=== PATIENT | male | born 1985 | race Hispanic/Latino ===

== ENCOUNTER 2018-01-11 17:01 | Observation (INO) | payer BC, MEDICAID, OTHER ==
[~2018-01-11] VITALS: Ht 177.8 cm; Wt 128.4 kg
[~2018-01-11 17:01] MED LIST: NEXIUM40 MG PO
[2018-01-11] MEDS ORDERED: SODIUM CHLORIDE 0.9% 1000ML 1,000 ML IV STA (17:07)
[2018-01-11] MEDS ORDERED: ONDANSETRON HCL INJ 2 MG/ML VIAL IV STA (17:07)
[2018-01-11] MEDS ORDERED: DONNATAL/LIDOCAINE/MAALOX 30 ML SUSP PO ONE (17:45)
[2018-01-11 17:51] LABS: BASOPHILS # (AUTO) 0.1 (0.0-0.1); BASOPHILS % 0.8 % (0.0-1.0); HEMOGLOBIN 16.5 g/dL (14.0-18.0); LYMPHOCYTES # (AUTO) 2.8 (1.0-3.2); LYMPHOCYTES % 27.3 % (18.0-39.1); MEAN CORPUSCULAR HEMOGLOBIN 31.4 pg (28-32); MEAN CORPUSCULAR HGB CONC 35.1 g/dL (31-35); MEAN CORPUSCULAR VOLUME 89.4 fL (81-99); MONOCYTES # (AUTO) 0.7 (0.2-0.8); MONOCYTES % 7.2 % (4.4-11.3); NEUTROPHILS # (AUTO) 5.5 (2.1-6.9); NEUTROPHILS % 53.9 % (38.7-80.0); PLATELET COUNT 281 x10e3/uL (140-360); RED BLOOD COUNT 5.26 x10e6/uL (4.3-5.7); RED CELL DISTRIBUTION WIDTH 12.3 % (11.7-14.4)
[2018-01-11 17:59] LABS: INR 1.16; PROTHROMBIN TIME 13.9 seconds (11.9-14.5)
[2018-01-11 18:00] LABS: PARTIAL THROMBOPLASTIN TIME 28.9 seconds (23.8-35.5)
[2018-01-11 18:10] LABS: ALANINE AMINOTRANSFERASE 168 IU/L (0-55); ALBUMIN 4.2 g/dL (3.5-5.0); ALBUMIN/GLOBULIN RATIO 1.2 (0.8-2.0); ALKALINE PHOSPHATASE 70 IU/L (40-150); AMYLASE 44 U/L (25-125); ANION GAP 13.9 mmol/L (8-16); BLOOD UREA NITROGEN 13 mg/dL (7-26); BUN/CREATININE RATIO 14 (6-25); CALCIUM 9.4 mg/dL (8.4-10.2); CARBON DIOXIDE 26 mmol/L (22-29); CHLORIDE 104 mmol/L (98-107); CREATININE, SERUM 0.94 mg/dL (0.72-1.25); EST GLOMERULAR FILTRATION RATE > 60 ML/MIN (60-); GLUCOSE 106 mg/dL (74-118); LIPASE 24 U/L (8-78); POTASSIUM 3.9 mmol/L (3.5-5.1); SODIUM 140 mmol/L (136-145)
--- NOTE | 2018-01-11 18:57 | Diagnostic Imaging Report ---
PROCEDURE: CT ABDOMEN AND PELVIS WITH CONTRAST TECHNIQUE: The abdomen and pelvis were scanned utilizing a multidetector helical scanner from the diaphragm to the lesser trochanter after the IV administration of 100 cc of Isovue 370 and the oral administration of water. Coronal and sagittal multiplanar reformations were obtained. COMPARISON: Patients [facility], CT, CT ABDOMEN/PELVIS W, 09/11/2016, 21:49. Patients [facility], CT, CT ABDOMEN/PELVIS W, 01/21/2014, 5:34. INDICATIONS: LUQ PAIN, COUGHING UP BLOOD FINDINGS: LOWER THORAX: Unremarkable. HEPATOBILIARY: Normal hepatic size and contour. Moderate to marked diffuse hepatic steatosis. No focal lesions. No biliary ductal dilation. Gallbladder is unremarkable. SPLEEN: Mild splenomegaly, measuring 14.6 cm in AP diameter, stable. PANCREAS: No focal masses or ductal dilatation. No peripancreatic inflammatory changes, free fluid or fluid collections. Normal enhancement. ADRENALS: No adrenal nodules. KIDNEYS/URETERS: No hydronephrosis, stones, or solid mass lesions. PELVIC ORGANS/BLADDER: Bladder and prostate are unremarkable. PERITONEUM / RETROPERITONEUM: No free air or fluid. LYMPH NODES: No lymphadenopathy. VESSELS: Unremarkable. GI TRACT: No bowel dilation or evidence of obstruction. No pericolonic inflammatory changes. The appendix is well identified and normal in caliber. Stomach is unremarkable. BONES AND SOFT TISSUES: No aggressive lytic lesion. Soft tissues are unremarkable. IMPRESSION: 1. no acute abdominopelvic abnormalities. 2. Moderate to marked diffuse hepatic steatosis. No focal lesions. 3. Mild splenomegaly, stable. Varinder Mireles M.D. Dictated by: Varinder Mireles M.D. on 01/11/2018 at 18:57 Electronically approved by: Varinder Mireles M.D. on 01/11/2018 at 18:57
--- OUTSIDE RECORDS SUMMARY | 2018-01-11 19:50 | XMS REPORT ---
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 Allergies, Adverse Reactions, Alerts This patient has no known allergies or adverse reactions. Medications This patient has no known medications. 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 Coronal and sagittal multiplanar reformations were obtained. COMPARISON: [facility], CT, CT ABDOMEN/PELVIS W, 09/11/2016, 21:49. [facility], CT, CT ABDOMEN/PELVIS W, 2013, 5:34. INDICATIONS: LUQ PAIN, COUGHING UP BLOOD FINDINGS: LOWER THORAX: Unremarkable. HEPATOBILIARY: Normal hepatic size and contour. Moderate to marked diffuse hepatic steatosis. No focal lesions. No biliary ductal dilation. Gallbladder is unremarkable. SPLEEN: Mild splenomegaly, measuring 14.6 cm in AP diameter, stable. PANCREAS: No focal masses or ductal dilatation. No peripancreatic inflammatory changes, free fluid or fluid collections. Normal enhancement. ADRENALS: No adrenal nodules. KIDNEYS/URETERS: No hydronephrosis, stones, or solid mass lesions. PELVIC ORGANS/BLADDER: Bladder and prostate are unremarkable. PERITONEUM / RETROPERITONEUM: No free air or fluid. LYMPH NODES: No lymphadenopathy. VESSELS: Unremarkable. GI TRACT: No bowel dilation or evidence of obstruction. No pericolonic inflammatory changes. The appendix is well identified and normal in caliber. Stomach is unremarkable. BONES AND SOFT TISSUES: No aggressive lytic lesion. Soft tissues are unremarkable. IMPRESSION: 1. no acute abdominopelvic abnormalities. 2. Moderate to marked diffuse hepatic steatosis. No focal lesions. 3. Mild splenomegaly, stable. Omar Mireles M.D. Dictated by: Omar Mireles M.D. on 01/11/2018 at 18:57 Electronically approved by: Omar Mireles M.D. on 01/11/2018 at 18:57 Dictated By: OMAR MIRELES MD 56 Transcribed By: YAKOV on 01/11/181856 COPY TO: LUIS WHALEN NP
[2018-01-11] MEDS: PANTOPRAZOLE 40 MG 10ML VIAL IV SCH (20:30)
[2018-01-11] MEDS: SODIUM CHLORIDE 0.9% 1000ML 1,000 ML IV SCH (20:30)
[2018-01-11 20:40] VITALS: BP 129/66
[2018-01-11 21:35] VITALS: BP 129/66
[2018-01-11] MEDS ORDERED: SODIUM CHLORIDE 0.9% 50ML 50 ML ONE (22:25)
[2018-01-11] MEDS ORDERED: IOPAMIDOL 370 MG/ML 200 ML INFUS..BTL INJ ONE (22:26)
[2018-01-11] MEDS: HYDROMORPHONE 2MG/ML INJ IV PRN (22:42)
[2018-01-12] VITALS (8 sets, daily range): BP systolic 114–161; BP diastolic 61–90
[2018-01-12] MEDS ORDERED: PEG (High)/E-LYTE SOLN 4,000 ML BTL PO ONE
[2018-01-12 02:29] LABS: HEMATOCRIT 43.7 % (38.2-49.6); HEMOGLOBIN 15.4 g/dL (14.0-18.0)
[2018-01-12] MEDS: SODIUM CHLORIDE 0.9% 1000ML 1,000 ML IV SCH ×2 (04:56→11:49)
[2018-01-12] MEDS: HYDROMORPHONE 2MG/ML INJ IV PRN ×3 (06:12→19:55)
[2018-01-12 06:20] LABS: HEMATOCRIT 42.7 % (38.2-49.6); HEMOGLOBIN 14.6 g/dL (14.0-18.0)
[2018-01-12] MEDS: PANTOPRAZOLE 40 MG 10ML VIAL IV SCH ×2 (09:37→19:55)
[2018-01-12] MEDS: ONDANSETRON HCL INJ 2 MG/ML VIAL IV PRN (11:11)
[2018-01-12 12:12] LABS: HEMATOCRIT 42.6 % (38.2-49.6); HEMOGLOBIN 14.8 g/dL (14.0-18.0)
[2018-01-12] MEDS ORDERED: SOD PHOSPHATE/SOD BIPHOSPHATE ENEMA 132 ML BTL PR PRN (15:45)
[2018-01-12] MEDS ORDERED: HYOSCYAMINE SULFATE 0.5 MG/ML AMP ONE (18:34)
[2018-01-12] MEDS ORDERED: FENTANYL CITRATE/PF 100MCG/2 ML INJ ONE (18:34)
[2018-01-12] MEDS ORDERED: PROPOFOL IV EMULSION 10 MG/ML 50 ML VIAL ONE (18:34)
[2018-01-12] MEDS ORDERED: MIDAZOLAM HCL 2 MG/2 ML VIAL ONE (18:34)
[2018-01-12] MEDS ORDERED: LIDOCAINE HCL 2% LOCAL INJ 5 ML SDV VIAL INJ ONE (18:34)
[2018-01-12 19:01] LABS: WBC,FECAL (FECAL LACTOFERRIN) NEGATIVE (NEGATIVE)
[2018-01-12 19:25] LABS: HEMATOCRIT 43.4 % (38.2-49.6); HEMOGLOBIN 15.2 g/dL (14.0-18.0)
--- NOTE | 2018-01-12 19:35 | Operative Report ---
DATE OF PROCEDURE: January 12, 2018 REFERRING PHYSICIAN: Dr. Latoya Hart. PROCEDURE PERFORMED: Esophagogastroduodenoscopy with biopsied and a colonoscopy with polypectomy and biopsy. INDICATIONS FOR ESOPHAGOGASTRODUODENOSCOPY: History of heartburn, indigestion, nausea and vomiting. INDICATIONS FOR COLONOSCOPY: Diarrhea. History of bright blood per rectum. MEDICATION: Patient was done under MAC. Please see anesthesiologist's note. PROCEDURE: With patient in the left lateral decubitus position, the flexible fiberoptic Olympus gastroscope was introduced into the esophagus under direct visualization without any difficulty. There was some patchy erythema noted in the distal esophagus. The scope was then advanced with ease into the stomach and mucosa overlying the antrum and the body revealed some patchy erythema and low-grade to moderate edema and biopsies were obtained and sent to stain for H. pylori. Pylorus appeared to be of normal contour and shape. Was intubated with ease and the scope was advanced all the way to the 2nd portion of the duodenum. The scope was then withdrawn slowly. Mucosa overlying the proximal 2nd portion and the duodenal bulb appeared to be within normal limits. The scope was then withdrawn back into the stomach and retroflexed and mucosa overlying the fundus and the cardia appeared to be within normal limits. The scope was then straightened out. Stomach was decompressed. Scope was subsequently withdrawn. Patient tolerated the procedure well. IMPRESSION: 1. Distal esophagitis. 2. Gastritis, biopsied. Biopsy sent to stain for H. pylori. PLAN: Follow up histology. Initiate Protonix 40 mg 1 p.o. q.a.m. and nightly. PROCEDURE: Patient was then turned around and after adequate lubrication of the anal canal a flexible fiberoptic Olympus colonoscope was inserted into the rectum with ease and advanced all the way to the cecum. Mucosa overlying the cecum appeared to be within normal limits. The ileocecal valve was intubated. Scope was advanced into the terminal ileum. Biopsies were obtained. The scope was then withdrawn back into the colon. It was then withdrawn slowly. Mucosa overlying the ascending and the transverse grossly appeared to be within normal limits. Mild inflammatory changes were noted in the left colon. Random biopsies were obtained. Three polyps were hot biopsied from the sigmoid colon. The scope was then retroflexed into the distal rectum and small internal hemorrhoids were noted, none of which was actively bleeding. The scope was then straightened out. The scope was subsequently withdrawn after securing an adequate stool specimen that was sent for the appropriate stool studies. Patient tolerated the procedure well. IMPRESSION. 1. Mild left-sided colitis. 2. Sigmoid colon polyps times 3, hot biopsied. 3. Internal hemorrhoids, none actively bleeding. PLAN: Follow up histology. Follow up stool studies. Initiate Bentyl 10 mg 1 p.o. t.i.d., number 90, and Flagyl 500 mg one p.o. q.i.d., #56. VSL#3 DS one p.o. daily. Job#: [id number] cc:LATOYA HART MD
[2018-01-13 00:01] VITALS: BP 136/77
[2018-01-13] MEDS: HYDROMORPHONE 2MG/ML INJ IV PRN ×4 (00:48→14:03)
[2018-01-13 00:49] LABS: HEMATOCRIT 40.2 % (38.2-49.6); HEMOGLOBIN 14.1 g/dL (14.0-18.0)
[2018-01-13] MEDS: SODIUM CHLORIDE 0.9% 1000ML 1,000 ML IV SCH ×3 (00:50→10:35)
[2018-01-13 04:00] VITALS: BP 125/66
[2018-01-13 06:12] LABS: HEMOGLOBIN 14.3 g/dL (14.0-18.0)
[2018-01-13 07:50] VITALS: BP 124/65
[2018-01-13] MEDS: ONDANSETRON HCL INJ 2 MG/ML VIAL IV PRN ×2 (08:09→14:03)
[2018-01-13] MEDS: PANTOPRAZOLE 40 MG 10ML VIAL IV SCH (08:09)
[2018-01-13] MEDS ORDERED: ACETAMINOPHEN 325 MG TAB PO PRN (08:30)
[2018-01-13] MEDS: METOCLOPRAMIDE HCL 10 MG/2ML VIAL IV SCH ×2 (08:56→11:59)
[2018-01-13 12:03] LABS: HEMATOCRIT 42.6 % (38.2-49.6); HEMOGLOBIN 14.7 g/dL (14.0-18.0)
[2018-01-13 12:12] VITALS: BP 126/64
[2018-01-13 15:09] LABS: C DIFFICILE TOXIN A&B AMP PROB NEGATIVE (NEGATIVE)
[2018-01-13 15:46] VITALS: BP 101/56
[2018-01-13] MEDS ORDERED: FLAGYL250 MG PO (17:59)
[2018-01-13] MEDS ORDERED: PROTONIX40 MG PO (18:02)
[2018-01-13] MEDS ORDERED: BENTYL10 MG/1 ML PO (18:03)
== END 2018-01-13 18:36 | disposition home or self-care (01) ==
LOC: ER 17:01 → ERHOLD 19:47 → IMCU 20:15
DX: K29.51 Unspecified chronic gastritis with bleeding (principal); R19.7 Diarrhea, unspecified; K92.0 Hematemesis; K92.1 Melena; E66.01 Morbid (severe) obesity due to excess calories; Z68.41 Body mass index [BMI] 40.0-44.9, adult; K20.9 Esophagitis, unspecified; K52.9 Noninfective gastroenteritis and colitis, unspecified; D12.5 Benign neoplasm of sigmoid colon; K64.8 Other hemorrhoids
CPT/HCPCS: 36415; 43239; 45380; 45384; 74177; 80053; 82150; 82270; 83630; 83690; 83993; 85014; 85018; 85025; 85610; 85730; 86850; 86900; 87045; 87177; 87328; 87493; 88305; 88312; 93005; 99284; G0378; J1980; J2001; J2250; J2405; J2765; J7030; Q9967

== ENCOUNTER → 2024-06-30 | Day surgery (SDC) | payer BC ==
[~2024-06-30] MED LIST changes: +BENTYL10 MG/1 ML PO; +DICYCLOMINE HCL20 MG PO; +FENTANYL CITRATE/PF 100MCG/2 ML INJ ONE; +FLAGYL250 MG PO; +HYOSCYAMINE SULFATE 0.5 MG/ML INJ ONE; +JARDIANCE25 MG PO; +LISINOPRIL5 MG PO; +METFORMIN HCL500 M2 PO; +METHOCARBAMOL750 MG PO; +ONDANSETRON ODT4 MG PO; +PANTOPRAZOLE SO40 MG PO; +PROPOFOL IV EMULSION 10 MG/ML 20 ML VIAL ONE; +PROPOFOL IV EMULSION 50 ML IV ONE; +PROTONIX40 MG PO; +ROSUVASTATIN CA10 MG PO; +SIMETHICONE 40 MG/0.6 ML BTL ONE; +VITAMIN D31250 MCG
[2024-06-30] MEDS: LACTATED RINGER'S 1,000 ML ONE (05:50)
[2024-06-30 08:41] VITALS: TEMP 97.2
[2024-06-30 09:10] VITALS: BP 135/80; PULSE 76; RESP 16; O2SAT 97
== END | disposition home or self-care (01) ==
LOC: OR 05:43
PROVIDERS: ATTEND Internal Medicine Gastroenterology
DX: R04.2 Hemoptysis (principal); K63.5 Polyp of colon; K20.90 Esophagitis, unspecified without bleeding; K29.50 Unspecified chronic gastritis without bleeding; K64.8 Other hemorrhoids; K59.09 Other constipation; I10 Essential (primary) hypertension; E11.9 Type 2 diabetes mellitus without complications; Z79.84 Long term (current) use of oral hypoglycemic drugs; E78.00 Pure hypercholesterolemia, unspecified; E66.01 Morbid (severe) obesity due to excess calories; Z68.38 Body mass index [BMI] 38.0-38.9, adult; Z71.3 Dietary counseling and surveillance; Z86.16 Personal history of COVID-19; Z01.810 Encounter for preprocedural cardiovascular examination
CPT/HCPCS: 43239; 45385; 93005; J1980; J2470; J2704 ×2; J3010; J7121; 45378